=== PATIENT | female | born 1955 | race Caucasian/White ===

== ENCOUNTER 2017-05-07 06:32 | Inpatient (IN) | payer BC, OTHER ==
[~2017-05-07] VITALS: Ht 160 cm; Wt 96.4 kg
[~2017-05-07 06:32] MED LIST: ASPIR 8181 M1 PO; AVENTYL,PAMELOR50 MG PO; CARVEDILOL3.125 MG PO; CELEBREX200 MG PO; CINNAMON500 MG PO; CLOPIDOGREL75 MG PO; FLONASE16 G1 BOTH NARES; GUAIFENESI100 MG/5 M PO; HYDROCHLOROTHIA25 MG PO; INSULIN PUMP SCCONT; LASIX20 MG PO; LIPITOR40 MG PO; LIPITOR80 MG PO; LISINOPRIL20 MG PO; NITROSTAT0.4 MG SL; POTASSIUM-9999 MG PO
[2017-05-07 07:19] LABS: BASOPHIL COUNT 0.1 K/uL (0-0.1); EOSINOPHIL (%) 4.8 % (0-5); EOSINOPHIL COUNT 0.4 K/uL (0-0.3); HEMATOCRIT 33.8 % (36.0-46.0); IMMATURE GRANULOCYTE (%) 0.3 % (0.0-0.7); INSTRUMENT ABS NEUTROPHIL CT 4.2 K/uL; LYMPHOCYTE COUNT 2.5 K/uL (1.0-2.8); MCH 30.2 PG (29.0-34.0); MCHC 33.7 G/DL (30.0-36.0); MCV 89.4 FL (83-99); MEAN PLAT.VOLUME 9.8 uM^3 (9.5-12.4); MONOCYTE (%) 8.1 % (3-12); MONOCYTE COUNT 0.6 K/uL (0-0.8); NEUTROPHIL (%) 54.1 % (45-76); NEUTROPHIL COUNT 4.2 K/uL (1.8-6.4); PLATELET COUNT 223 K/uL (156-360); RBC DIS.WIDTH-CV 12.6 % (11.8-14.6); RBC DIS.WIDTH-SD 41.4 % (39-53); RED BLOOD COUNT 3.78 M/uL (3.80-5.20); WHITE BLOOD COUNT 7.8 K/uL (4.1-10.2)
[2017-05-07 07:43] LABS: ANION GAP 8 MEQ/L (2-14); CHLORIDE 104 MEQ/L (99-109); POTASSIUM 3.6 MEQ/L (3.7-5.4); SAMPLE HEMOLYSIS CHECK 0; SAMPLE ICTERIC CHECK 0; SAMPLE LIPEMIA CHECK 0; SODIUM 138 MEQ/L (136-147); TOTAL BILIRUBIN 0.7 MG/DL (0.0-1.0)
[2017-05-07 07:49] LABS: ALKALINE PHOSPHATASE 85 IU/L (3-129); GFR ESTIMATE (CALCULATED) 41 mL/min/; GLUCOSE 131 mg/dL (70-99); LIPASE 39 U/L (1.0-51.0); UREA NITROGEN (BUN) 36 mg/dL (9-23)
[2017-05-07 08:14] LABS: ADD MIUA? YES; BILIRUBIN NEGATIVE; BLOOD NEGATIVE; COLOR YELLOW ((YELLOW)); GLUCOSE (STRIP) NEGATIVE; KETONES NEGATIVE; LEUKOCYTES LARGE; NITRITE POSITIVE; PROTEIN (STRIP) NEGATIVE; SPECIFIC GRAVITY 1.016 (1.000-1.030); UROBILINOGEN 0.2 MG/DL (0.2-1.0)
[2017-05-07 08:29] LABS: BACTERIA RARE /HPF; CALCIUM OXALATE CRYSTALS 1+ /HPF; EPITHELIAL CELLS RARE /HPF; MUCUS NONE SEEN /LPF; RED BLOOD CELLS 15-20 /HPF (0-5); WHITE BLOOD CELLS TNTC /HPF (0-5)
[2017-05-07] MEDS ORDERED: INSULIN PUMP MC (10:53)
[2017-05-07] MEDS ORDERED: HYDROCHLOROTHIA25 MG PO (10:54)
[2017-05-07 11:40] VITALS: BP 137/63
[2017-05-07 15:00] VITALS: BP 138/62
[2017-05-07 17:23] LABS: POINT-OF-CARE METER ID UU13113675
[2017-05-07 19:25] LABS: ANION GAP 9 MEQ/L (2-14)
[2017-05-07 19:36] LABS: CHLORIDE 105 MEQ/L (99-109); GFR ESTIMATE (CALCULATED) 49 mL/min/; POTASSIUM 4.1 MEQ/L (3.7-5.4); SAMPLE HEMOLYSIS CHECK 0; SAMPLE ICTERIC CHECK 0; SAMPLE LIPEMIA CHECK 0; SODIUM 137 MEQ/L (136-147); UREA NITROGEN (BUN) 28 mg/dL (9-23)
[2017-05-07 19:38] LABS: GLUCOSE 202 mg/dL (70-99)
[2017-05-07 19:44] LABS: HEMATOCRIT 31.7 % (36.0-46.0); MCHC 32.8 G/DL (30.0-36.0); MCV 91.4 FL (83-99); MEAN PLAT.VOLUME 10.8 uM^3 (9.5-12.4); PLATELET COUNT 168 K/uL (156-360); RBC DIS.WIDTH-CV 12.7 % (11.8-14.6); RED BLOOD COUNT 3.47 M/uL (3.80-5.20); WHITE BLOOD COUNT 2.1 K/uL (4.1-10.2)
[2017-05-07 21:02] VITALS: BP 94/47
[2017-05-07 22:23] LABS: POINT-OF-CARE METER ID UU13113781
[2017-05-07 23:57] VITALS: BP 90/42
[2017-05-08] VITALS (7 sets, daily range): BP systolic 89–113; BP diastolic 47–56
[2017-05-08 05:16] LABS: HEMATOCRIT 28.2 % (36.0-46.0); MCH 30.3 PG (29.0-34.0); MCHC 32.6 G/DL (30.0-36.0); MCV 92.8 FL (83-99); MEAN PLAT.VOLUME 11.1 uM^3 (9.5-12.4); PLATELET COUNT 118 K/uL (156-360); RBC DIS.WIDTH-CV 13.2 % (11.8-14.6); RBC DIS.WIDTH-SD 45.1 % (39-53); RED BLOOD COUNT 3.04 M/uL (3.80-5.20); WHITE BLOOD COUNT 19.4 K/uL (4.1-10.2)
[2017-05-08 05:49] LABS: ABS NEUTROPHIL COUNT 17.8; ATYPICAL LYMPHOCYTE 0.9 %; BAND NEUTROPHILS 21.2 % (0-8.0); EOSINOPHIL ABS CT 0; INSTRUMENT ABS NEUTROPHIL CT 18.1 K/uL; LYMPHOCYTES 0.9 % (15.0-45.0); METAMYELOCYTES 2.7 %; MYELOCYTES 0.9 %; PLAT.SUFFICIENCY DECREASED; SEG.NEUTROPHILS 70.8 % (46.0-76.0)
[2017-05-08 05:53] LABS: ANION GAP 10 MEQ/L (2-14); CHLORIDE 107 MEQ/L (99-109); GFR ESTIMATE (CALCULATED) 35 mL/min/; GLUCOSE 180 mg/dL (70-99); POTASSIUM 3.4 MEQ/L (3.7-5.4); SAMPLE HEMOLYSIS CHECK 0; SAMPLE ICTERIC CHECK 0; SAMPLE LIPEMIA CHECK 0; SODIUM 139 MEQ/L (136-147); UREA NITROGEN (BUN) 30 mg/dL (9-23)
[2017-05-08 07:48] LABS: POINT-OF-CARE METER ID UU13113698
[2017-05-08 11:23] LABS: POINT-OF-CARE METER ID UU13113698
[2017-05-08 15:50] LABS: POINT-OF-CARE METER ID UU14314088
[2017-05-08 20:42] LABS: POINT-OF-CARE METER ID UU14314088
[2017-05-08 23:39] LABS: TROP-I INTERPRETATION POSITIVE
[2017-05-08 23:42] LABS: TROPONIN-I 1.76 ng/mL (0.0-0.30)
[2017-05-09 01:11] LABS: INTER. NORMALIZED RATIO 1.6; PROTHROMBIN TIME 18.2 SEC (10.2-12.9)
[2017-05-09 01:13] LABS: PTT 31.5 SEC (25-37)
[2017-05-09 04:21] VITALS: BP 89/50
[2017-05-09 04:28] LABS: HEMATOCRIT 25.1 % (36.0-46.0); MCH 31.3 PG (29.0-34.0); MCHC 34.7 G/DL (30.0-36.0); MCV 90.3 FL (83-99); MEAN PLAT.VOLUME 11.1 uM^3 (9.5-12.4); PLATELET COUNT 110 K/uL (156-360); RBC DIS.WIDTH-CV 13.2 % (11.8-14.6); RED BLOOD COUNT 2.78 M/uL (3.80-5.20); WHITE BLOOD COUNT 27.2 K/uL (4.1-10.2)
[2017-05-09 04:38] LABS: CHLORIDE 108 mEq/L (99-109)
[2017-05-09 04:39] LABS: SODIUM 135 mEq/L (136-147)
[2017-05-09 04:42] LABS: ANION GAP 8 MEQ/L (2-14)
[2017-05-09 04:44] LABS: GFR ESTIMATE (CALCULATED) 41 mL/min/
[2017-05-09 04:45] LABS: UREA NITROGEN (BUN) 33 mg/dL (9-23)
[2017-05-09 04:49] LABS: GLUCOSE 78 mg/dL (70-99); TROP-I INTERPRETATION POSITIVE
[2017-05-09 08:10] LABS: POINT-OF-CARE METER ID UU13113698
[2017-05-09 09:03] VITALS: BP 111/58
[2017-05-09 09:11] LABS: POINT-OF-CARE METER ID UU14174216
[2017-05-09 11:10] LABS: POINT-OF-CARE METER ID UU13113698
[2017-05-09 11:33] VITALS: BP 111/58
[2017-05-09 14:57] LABS: TROP-I INTERPRETATION POSITIVE; TROPONIN-I 1.54 ng/mL (0.0-0.30)
[2017-05-09 15:47] VITALS: BP 100/57
[2017-05-09 16:12] LABS: POINT-OF-CARE METER ID UU14314088
[2017-05-09 19:32] VITALS: BP 101/53
[2017-05-09 21:45] LABS: POINT-OF-CARE METER ID UU14314088
[2017-05-09 23:45] VITALS: BP 122/57
[2017-05-10 02:28] VITALS: BP 120/63
[2017-05-10 04:06] VITALS: BP 99/59
[2017-05-10 05:33] LABS: HEMATOCRIT 25.8 % (36.0-46.0); MCH 30.5 PG (29.0-34.0); MCHC 33.7 G/DL (30.0-36.0); MCV 90.5 FL (83-99); MEAN PLAT.VOLUME 11.4 uM^3 (9.5-12.4); PLATELET COUNT 131 K/uL (156-360); RBC DIS.WIDTH-CV 13.2 % (11.8-14.6); RBC DIS.WIDTH-SD 43.8 % (39-53); RED BLOOD COUNT 2.85 M/uL (3.80-5.20); WHITE BLOOD COUNT 22.4 K/uL (4.1-10.2)
[2017-05-10 06:01] LABS: ANION GAP 6 MEQ/L (2-14); CHLORIDE 105 MEQ/L (99-109); GFR ESTIMATE (CALCULATED) 44 mL/min/; GLUCOSE 110 mg/dL (70-99); POTASSIUM 3.7 MEQ/L (3.7-5.4); SAMPLE HEMOLYSIS CHECK 0; SAMPLE ICTERIC CHECK 0; SAMPLE LIPEMIA CHECK 0; SODIUM 134 MEQ/L (136-147); UREA NITROGEN (BUN) 29 mg/dL (9-23)
[2017-05-10 07:41] VITALS: BP 102/52
[2017-05-10 07:51] LABS: POINT-OF-CARE METER ID UU13113781
[2017-05-10 10:59] VITALS: BP 115/58
[2017-05-10 11:16] LABS: POINT-OF-CARE METER ID UU13113781
[2017-05-10 16:19] LABS: POINT-OF-CARE METER ID UU13113781
[2017-05-10 16:50] VITALS: BP 117/64
[2017-05-10 19:15] VITALS: BP 112/52
[2017-05-10 21:19] LABS: POINT-OF-CARE METER ID UU14314088
[2017-05-11] VITALS: BP 124/58
[2017-05-11 06:12] VITALS: BP 114/57
[2017-05-11 06:46] LABS: HEMATOCRIT 26.7 % (36.0-46.0); MCH 31.1 PG (29.0-34.0); MCHC 34.1 G/DL (30.0-36.0); MCV 91.1 FL (83-99); MEAN PLAT.VOLUME 11.7 uM^3 (9.5-12.4); PLATELET COUNT 141 K/uL (156-360); RBC DIS.WIDTH-CV 13.2 % (11.8-14.6); RBC DIS.WIDTH-SD 44.3 % (39-53); RED BLOOD COUNT 2.93 M/uL (3.80-5.20)
[2017-05-11 07:11] LABS: ANION GAP 7 MEQ/L (2-14); CHLORIDE 106 MEQ/L (99-109); GFR ESTIMATE (CALCULATED) 54 mL/min/; POTASSIUM 4.1 MEQ/L (3.7-5.4); SAMPLE HEMOLYSIS CHECK 0; SAMPLE ICTERIC CHECK 0; SAMPLE LIPEMIA CHECK 0; SODIUM 138 MEQ/L (136-147); UREA NITROGEN (BUN) 22 mg/dL (9-23)
[2017-05-11 07:15] LABS: GLUCOSE 252 mg/dL (70-99)
[2017-05-11 07:17] VITALS: BP 104/51
[2017-05-11 08:01] LABS: POINT-OF-CARE METER ID UU14174216
[2017-05-11 11:10] VITALS: BP 128/59
[2017-05-11] MEDS ORDERED: HYDROMORPHONE HC2 MG PO (11:19)
[2017-05-11] MEDS ORDERED: CEFTIN500 MG PO (11:20)
[2017-05-11 11:33] LABS: POINT-OF-CARE METER ID UU13113698
== END 2017-05-11 13:35 | disposition home or self-care (01) | DRG 854 ==
LOC: EME 06:32 → 5EAST 10:37 → 4EAST 10:37 → EDOF 10:37 → ENRESERV 10:42 → 5EAST 11:31 → ENRESERV 18:21 → 4EAST 21:17
PROVIDERS: Emergency Medicine; Family Medicine; Hospitalist; Urology
DX: A41.51 Sepsis due to Escherichia coli [E. coli] (principal); N17.9 Acute kidney failure, unspecified; N20.1 Calculus of ureter; N13.6 Pyonephrosis; I24.8 Other forms of acute ischemic heart disease; R65.20 Severe sepsis without septic shock; D64.9 Anemia, unspecified; E11.9 Type 2 diabetes mellitus without complications; I25.10 Atherosclerotic heart disease of native coronary artery without angina pectoris; I10 Essential (primary) hypertension; I95.9 Hypotension, unspecified; F41.9 Anxiety disorder, unspecified; E87.6 Hypokalemia; Z96.41 Presence of insulin pump (external) (internal); E78.5 Hyperlipidemia, unspecified; R00.0 Tachycardia, unspecified; I25.2 Old myocardial infarction; Z79.4 Long term (current) use of insulin; Z86.73 Personal history of transient ischemic attack (TIA), and cerebral infarction without residual deficits; Z87.442 Personal history of urinary calculi; Z80.1 Family history of malignant neoplasm of trachea, bronchus and lung; Z79.82 Long term (current) use of aspirin; E66.9 Obesity, unspecified; Z68.37 Body mass index [BMI] 37.0-37.9, adult
CPT/HCPCS: 71010; 74176; 74420; 80048; 80048 91; 80053; 81003; 82365 90; 82948; 83605; 83690; 83880; 84484; 85025; 85027; 85610; 85730; 87040; 87077; 87086; 87186; 87801; 93005; 93306; 94640; 99202; 99281; 99285; C1769; C2625; J0131; J0692; J1940; J1956; J2175; J2250; J2270; J2405; J2765; J3010; J7030; J7050; J7120

== ENCOUNTER 2017-08-02 08:52 | Day surgery (SDC) | payer BC, OTHER ==
[~2017-08-02] VITALS: Ht 160 cm; Wt 89.8 kg
[~2017-08-02 08:52] MED LIST changes: +CEFTIN500 MG PO; +HYDROMORPHONE HC2 MG PO; +INSULIN PUMP MC; +ZESTRIL20 MG PO
[2017-08-02 10:06] VITALS: BP 119/64
== END 2017-08-02 11:30 | disposition home or self-care (01) ==
LOC: SDC 08:52
PROVIDERS: Urology
DX: N20.0 Calculus of kidney (principal); Z53.09 Procedure and treatment not carried out because of other contraindication
CPT/HCPCS: 82948; J0690; J1580; J2250; J3010